=== PATIENT | female | born 1980 | race Caucasian/White ===

== ENCOUNTER 2017-05-06 10:09 | Inpatient (IN) | payer BC ==
[2017-05-06] MEDS ORDERED: Sodium Chloride 0.9% 1,000 ML IV ONE (10:16)
[2017-05-06 10:40] LABS: CHLORIDE,CL 105 mmol/L (98-107); SODIUM,NA 140 mmol/L (136-145)
--- NOTE | 2017-05-06 11:15 | EDM.PDOC ---
ED HPI GENERAL MEDICAL PROBLEM - General Chief Complaint: General Stated Complaint: Fever, Muscle Aches, Weakness Time Seen by Provider: 05/06/17 10:15 Source of Information: Reports: Patient History Limitations: Reports: No Limitations - History of Present Illness INITIAL COMMENTS - FREE TEXT/NARRATIVE: Patient comes to ER complaining of feeling extreme fatigue/hot&cold spells and generalized aches for the last 5 days. Not improving. Poor appetite. No bowel changes. No nausea/emesis. Has headache. Mild runny nose and mild cough just starting. No rashes. No changes. No neuro complaints. Overall denies significant past medical history. Has had hysterectomy and gastric bypass surgery. History of kidney stone. Also PCO, depression, arthritis. B12 and iron deficiency. - Related Data Allergies Allergy/AdvReac Type Severity Reaction Status Date / Time cefdinir [From Omnicef] Allergy Hypotension, Verified 05/24/16 21:17 rash metronidazole Allergy Swelling Verified 05/24/16 21:17 Home Meds: Home Meds Cyanocobalamin (Vitamin B-12) [Cyanocobalamin Injection] 1,000 mcg IJ Q30D 10/04 [History] Cyclobenzaprine [Flexeril] 10 mg PO BEDTIME 10/04/14 [History] FLUoxetine [PROzac] 40 mg PO QAM 10/04/14 [History] Zolpidem [Ambien] 10 mg PO BEDTIME 10/04/14 [History] Diazepam [Valium] 10 mg PO BID 06/03/15 [History] Folic Acid 1 mg PO QAM 06/03/15 [History] Omeprazole Magnesium [Prilosec Otc] 20 mg PO DAILY 05/24/16 [History] Acetaminophen [Acetaminophen Extra Strength] 2 tab PO TID PRN 05/06/17 [History] Ibuprofen [Ibuprofen Ib] 400 mg PO QID 05/06/17 [History] Past Medical History HEENT History: Reports: Allergic Rhinitis, Impaired Vision BRANCH COORDINATOR History: Reports: Polycystic Ovaries Musculoskeletal History: Reports: Arthritis Other Musculoskeletal History: Arthritis in back Psychiatric History: Reports: Depression Hematologic History: Reports: Anemia, B12 Deficiency, Iron Deficiency - Past Surgical History HEENT Surgical History: Reports: Oral Surgery, Tonsillectomy GI Surgical History: Reports: Bariatric Procedure Social & Family History - Family History Family Medical History: Noncontributory - Tobacco Use Smoking Status *Q: Never Smoker Second Hand Smoke Exposure: No - Recreational Drug Use Recreational Drug Use: No ED ROS GENERAL - Review of Systems Review Of Systems: See Below Constitutional: Reports: Fever, Chills, Malaise, Weakness, Fatigue, Night Sweats , Decreased Appetite HEENT: Reports: Glasses, Rhinitis. Denies: Dental Pain, Ear Discharge, Ear Pain , Eye Discharge, Eye Pain, Sinus Problem, Throat Pain, Throat Swelling, Vertigo , Vision Change Respiratory: Reports: Cough (mild). Denies: Shortness of Breath, Wheezing, Pleuritic Chest Pain, Sputum, Hemoptysis Cardiovascular: Reports: Lightheadedness. Denies: Chest Pain, Dyspnea on Exertion, Palpitations, Syncope GI/Abdominal: Reports: No Symptoms : Reports: No Symptoms Musculoskeletal: Reports: Other (generalized aches) Skin: Reports: No Symptoms Neurological: Reports: Dizziness, Headache, Weakness. Denies: Confusion, Numbness, Paresthesia, Seizure, Syncope, Change in Speech, Gait Disturbance Psychiatric: Reports: No Symptoms Hematologic/Lymphatic: Reports: No Symptoms Immunologic: Reports: No Symptoms ED EXAM, GENERAL - Physical Exam Exam: See Below Exam Limited By: No Limitations General Appearance: Alert, WD/WN, Other (appears fatigued and pale) Eye Exam: Bilateral Eye: EOMI, PERRL Ears: Normal External Exam, Normal Canal, Hearing Grossly Normal, Normal TMs Nose: Normal Inspection Throat/Mouth: Normal Inspection, Normal Lips, Normal Teeth, Normal Gums, Normal Oropharynx, Normal Voice, No Airway Compromise Head: Atraumatic, Normocephalic Neck: Normal Inspection, Supple, Non-Tender, Full Range of Motion. No: Lymphadenopathy (L), Lymphadenopathy (R) Respiratory/Chest: No Respiratory Distress, Lungs Clear, Normal Breath Sounds, No Accessory Muscle Use, Chest Non-Tender Cardiovascular: No Edema, No Murmur, Tachycardia Peripheral Pulses: 2+: Radial (L), Radial (R) GI/Abdominal: Normal Bowel Sounds, Non-Tender, No Organomegaly, No Distention, No Abnormal Bruit, No Mass, Pelvis Stable (Female) Exam: Deferred Rectal (Female) Exam: Normal Exam, Normal Rectal Tone, Heme - Stool Back Exam: Normal Inspection, Full Range of Motion. No: CVA Tenderness (L), CVA Tenderness (R), Muscle Spasm, Paraspinal Tenderness, Vertebral Tenderness Extremities: Normal Range of Motion, No Pedal Edema, Slow Capillary Refill, Other (diffuse tenderness with palpation soft tissue of arms/legs.) Neurological: Alert, Oriented, CN II-XII Intact, Normal Cognition, Normal Gait, Normal Reflexes, No Motor/Sensory Deficits Psychiatric: Tearful Skin Exam: Warm, Dry, Intact, Pallor Lymphatic: No Adenopathy Course - Vital Signs Last Recorded V/S: Last Vital Signs Temp 38.7 C H 05/06/17 10:11 Pulse 110 H 05/06/17 10:11 Resp 16 05/06/17 10:11 BP 105/62 05/06/17 10:11 Pulse Ox 98 05/06/17 10:11 - Orders/Labs/Meds Orders: Active Orders 24 hr Category Date Time Status CULTURE BLOOD [BC] Stat Lab 05/06/17 11:05 Ordered CULTURE BLOOD [BC] Stat Lab 05/06/17 11:05 Ordered FERRITIN [CHEM] Stat Lab 05/06/17 11:05 Ordered IRON/TIBC [CHEM] Stat Lab 05/06/17 11:06 Ordered PACKED CELLS [RED BLOOD CELLS LP] [BBK] Stat Lab 05/06/17 11:07 Ordered TYPE AND SCREEN [BBK] Stat Lab 05/06/17 11:07 Ordered UA W/MICROSCOPIC [URIN] Stat Lab 05/06/17 10:15 Uncollected VITAMIN B12 [CHEM] Stat Lab 05/06/17 11:05 Ordered Sodium Chloride 0.9% [Normal Saline] 1,000 ml Med 05/06/17 10:16 Ordered IV .BOLUS Sodium Chloride 0.9% [Saline Flush] Med 05/06/17 10:16 Ordered 10 ml FLUSH ASDIRECTED PRN Blood Culture x2 Reflex Set [OM.PC] Stat Oth 05/06/17 11:05 Ordered Saline Lock Insert [OM.PC] Routine Oth 05/06/17 10:16 Ordered Medication Orders Sodium Chloride (Normal Saline) 1,000 mls @ 999 mls/hr IV .BOLUS ONE Stop: 05/06/17 11:16 Last Admin: 05/06/17 10:34 Dose: 999 mls/hr Sodium Chloride (Saline Flush) 10 ml FLUSH ASDIRECTED PRN PRN Reason: Keep Vein Open Labs: Laboratory Tests 05/06/17 05/06/17 Range/Units 10:20 10:20 WBC 5.9 (4.0-10.2) K/uL RBC 2.07 L (3.77-5.09) M/uL Hgb 7.5 L D (11.7-15.5) g/dL Hct 24.3 L* (34.0-46.0) % MCV 117.4 H D (84.0-98.0) fL MCH 36.2 H (28.2-33.3) pg MCHC 30.9 L (31.7-36.0) g/dL RDW 12.2 (11.2-14.1) % Plt Count 168 D (150-350) K/uL Neut % (Auto) 81.0 H (45.0-80.0) % Lymph % (Auto) 13.6 (10.0-50.0) % [place] % (Auto) 4.9 (2.0-14.0) % Eos % (Auto) 0.5 (0.0-5.0) % Baso % (Auto) 0.0 (0.0-2.0) % Neut # (Auto) 4.75 (1.40-7.00) K/uL Lymph # (Auto) 0.80 (0.50-3.50) K/uL [place] # (Auto) 0.29 (0.00-1.00) K/uL Eos # (Auto) 0.03 (0.00-0.50) K/uL Baso # (Auto) 0.00 (0.00-0.20) K/uL Sodium 140 D (136-145) mmol/L Potassium 3.7 (3.5-5.1) mmol/L Chloride 105 (98-107) mmol/L Carbon Dioxide 28.2 (21.0-32.0) mmol/L BUN 18 (7-18) mg/dL Creatinine 0.93 (0.51-1.17) mg/dL Est Cr Clr Drug Dosing TNP Estimated GFR (MDRD) > 60 mL/min Glucose 111 H (74-106) mg/dL Calcium 8.3 L (8.5-10.1) mg/dL Total Bilirubin 0.9 (0.2-1.0) mg/dL AST 17 (15-37) U/L ALT 22 (12-78) U/L Alkaline Phosphatase 79 (46-116) IU/L Total Protein 6.4 (6.4-8.2) g/dL Albumin 3.2 L (3.4-5.0) g/dL Meds: Medications Generic Name Dose Route Start Last Admin Trade Name Brettq PRN Reason Stop Dose Admin Sodium Chloride 1,000 mls @ 999 mls/hr 05/06/17 10:16 05/06/17 10:34 Normal Saline IV 05/06/17 11:16 999 mls/hr .BOLUS ONE Administration Sodium Chloride 10 ml 05/06/17 10:16 Saline Flush FLUSH ASDIRECTED PRN Keep Vein Open - Re-Assessments/Exams Free Text/Narrative Re-Assessment/Exam: 05/06/17 11:18 Patient noted to have Hgb of 7.5 Tachycardic, dehydrated in addition to noted anemia. Influenza negative. Blood cultures ordered. Chemistry overall unremarkable. Iron studies ordered in addition to other labs. Plan at this time is to admit to inpatient and treat dehydration as well as give PRBCs to treat anemia. Suspect that anemia is more likely chronic given patient's history of gastric bypass as well as previous B12/Fe deficiency. She denies black/bloody bowel movements. Departure - Departure Time of Disposition: 11:21 Disposition: Admitted As Inpatient 64 Condition: Good Clinical Impression: Dehydration, Weakness Fever Qualifiers: Fever type: unspecified Qualified Code(s): R50.9 - Fever, unspecified Anemia Qualifiers: Anemia type: unspecified type Qualified Code(s): D64.9 - Anemia, unspecified - Discharge Information Referrals: Bernice Bianchi, [employer] [Primary Care Provider] - - Problem List & Annotations (1) Anemia SNOMED Code(s): 648680534 Code(s): D64.9 - ANEMIA, UNSPECIFIED Status: Acute Priority: High Annotation/Comment:: Iron and B12 studies ordered. Suspect this is most likely chronic anemia. No evidence of acute blood loss/GI bleed at this time. Qualifiers: Anemia type: unspecified type (2) Fever SNOMED Code(s): 773011533 Code(s): R50.9 - FEVER, UNSPECIFIED Status: Acute Priority: High Qualifiers: Fever type: unspecified Qualified Code(s): R50.9 - Fever, unspecified (3) Dehydration SNOMED Code(s): 11802449 Code(s): E86.0 - DEHYDRATION Status: Acute Priority: High (4) Weakness SNOMED Code(s): 79843011 Code(s): R53.1 - WEAKNESS Status: Acute Priority: High (5) Hx of bariatric surgery SNOMED Code(s): 495237408 Code(s): Z98.84 - BARIATRIC SURGERY STATUS Status: Chronic Priority: Low (6) History of depression SNOMED Code(s): 130207953 Code(s): Z86.59 - PERSONAL HISTORY OF OTHER MENTAL AND BEHAVIORAL DISORDERS Status: Chronic Priority: Low Annotation/Comment:: stable by history (7) Polyarthritis rheumatica SNOMED Code(s): 39786159 Code(s): M06.9 - RHEUMATOID ARTHRITIS, UNSPECIFIED Status: Chronic Priority: Low Annotation/Comment:: stable - Problem List Review Problem List Initiated/Reviewed/Updated: Yes - My Orders Last 24 Hours: My Active Orders 05/06/17 10:15 UA W/MICROSCOPIC [URIN] Stat 05/06/17 10:16 Sodium Chloride 0.9% [Normal Saline] 1,000 ml IV .BOLUS Sodium Chloride 0.9% [Saline Flush] 10 ml FLUSH ASDIRECTED PRN Saline Lock Insert [OM.PC] Routine 05/06/17 11:05 CULTURE BLOOD [BC] Stat CULTURE BLOOD [BC] Stat FERRITIN [CHEM] Stat VITAMIN B12 [CHEM] Stat Blood Culture x2 Reflex Set [OM.PC] Stat 05/06/17 11:06 IRON/TIBC [CHEM] Stat 05/06/17 11:07 PACKED CELLS [RED BLOOD CELLS LP] [BBK] Stat TYPE AND SCREEN [BBK] Stat - Assessment/Plan Admission H&P: Please use this note as an admission H&P Last 24 Hours: My Active Orders 05/06/17 10:15 UA W/MICROSCOPIC [URIN] Stat 05/06/17 10:16 Sodium Chloride 0.9% [Normal Saline] 1,000 ml IV .BOLUS Sodium Chloride 0.9% [Saline Flush] 10 ml FLUSH ASDIRECTED PRN Saline Lock Insert [OM.PC] Routine 05/06/17 11:05 CULTURE BLOOD [BC] Stat CULTURE BLOOD [BC] Stat FERRITIN [CHEM] Stat VITAMIN B12 [CHEM] Stat Blood Culture x2 Reflex Set [OM.PC] Stat 05/06/17 11:06 IRON/TIBC [CHEM] Stat 05/06/17 11:07 PACKED CELLS [RED BLOOD CELLS LP] [BBK] Stat TYPE AND SCREEN [BBK] Stat Assessment:: Acute weakness, fevers/chills and dehydration in patient also found to be severely anemic. Influenza negative. Blood cultures pending. Suspect viral illness as several members of family have had viral type infections within the last week. Plan: IV fluids/PRBCs planned. Continued observation for changes. Iron studies and B12 level ordered. Blood cultures pending. Anticipate 2-3 day stay given patient 's current level of weakness and symptoms.
[2017-05-06] MEDS ORDERED: Ketorolac 30 MG/ML SDV IVPUSH ONE (11:30)
[2017-05-06] MEDS ORDERED: Bisacodyl 10 MG Supp RECTAL PRN (11:55)
[2017-05-06] MEDS ORDERED: Magnesium Hydroxide 400 MG/5 ML Susp 30 ML Cup PO PRN (11:55)
[2017-05-06] MEDS ORDERED: Ketorolac 30 MG/ML SDV IVPUSH PRN (12:12)
[2017-05-06] MEDS: Sodium Chloride 0.9% 1,000 ML IV SCH ×2 (12:13→23:56)
[2017-05-06] MEDS: Acetaminophen 325 MG Tab PO PRN ×2 (12:58→19:46)
[2017-05-06] MEDS: traMADol 50 MG Tab PO PRN (16:17)
[2017-05-06] MEDS ORDERED: Diazepam 5 MG Tab PO SCH (18:00)
[2017-05-06] MEDS: Cyclobenzaprine 10 MG Tab PO SCH (19:47)
[2017-05-06] MEDS: Zolpidem 5 MG Tab PO SCH (21:49)
[2017-05-06] MEDS: Diazepam 5 MG Tab PO SCH (21:49)
[2017-05-06] MEDS: Nitrofurantoin Monohydrate/Macrocrystalline 100 MG Cap PO SCH (22:34)
[2017-05-07] MEDS: Acetaminophen 325 MG Tab PO PRN ×3 (03:04→17:50)
[2017-05-07] MEDS: traMADol 50 MG Tab PO PRN ×3 (03:05→17:49)
[2017-05-07] MEDS: FLUoxetine 20 MG Cap PO SCH (07:20)
[2017-05-07] MEDS: Pantoprazole 40 MG Vial IVPUSH SCH (07:20)
[2017-05-07] MEDS: Diazepam 5 MG Tab PO SCH ×2 (07:21→21:19)
[2017-05-07] MEDS: Nitrofurantoin Monohydrate/Macrocrystalline 100 MG Cap PO SCH ×2 (07:21→17:51)
[2017-05-07] MEDS: Folic Acid 1 MG Tab PO SCH (07:21)
[2017-05-07 07:49] LABS: CHLORIDE,CL 107 mmol/L (98-107); SODIUM,NA 140 mmol/L (136-145)
[2017-05-07] MEDS: Sodium Chloride 0.9% 1,000 ML IV SCH (08:06)
--- NOTE | 2017-05-07 09:27 | PCM.PN ---
- General Info Date of Service: 05/07/17 Admission Dx/Problem (Free Text): Anemia, weakness, dehydration, suspected viral syndrome Subjective Update: Patient overall feels improved. Continues to have headache Functional Status: Reports: Ambulating, Other (Starting to recover appetite. Headache improved but still /10) - Review of Systems General: Reports: Weakness, Fatigue, Malaise. Denies: Fever, Chills, Night Sweats HEENT: Reports: Rhinitis. Denies: Sore Throat Pulmonary: Reports: Cough (mild). Denies: Shortness of Breath, Pleuritic Chest Pain, Sputum, Hemoptysis, Wheezing Cardiovascular: Reports: No Symptoms Gastrointestinal: Reports: Decreased Appetite. Denies: Abdominal Pain, Constipation, Diarrhea, Difficulty Swallowing, Nausea, Vomiting Genitourinary: Reports: No Symptoms Musculoskeletal: Reports: Other (generalized achiness) Skin: Reports: No Symptoms Neurological: Reports: Headache. Denies: Confusion, Dizziness, Numbness, Paresthesia, Change in Speech Psychiatric: Reports: No Symptoms - Patient Data Vitals - Most Recent: Last Vital Signs Temp 36.9 C 05/07/17 08:00 Pulse 82 05/07/17 08:00 Resp 16 05/07/17 08:00 BP 114/69 05/07/17 08:00 Pulse Ox 99 05/07/17 08:00 Weight - Most Recent: 67.132 kg I&O - Last 24 Hours: Intake & Output 05/06/17 05/07/17 05/07/17 22:59 06:59 14:59 Intake Total 3560 1900 Output Total 550 550 400 Balance 3010 1350 -400 Lab Results Last 24 Hours: Laboratory Results - last 24 hr 05/06/17 05/06/17 05/07/17 Range/Units 17:30 18:45 07:10 WBC (4.0-10.2) K/uL RBC (3.77-5.09) M/uL Hgb 8.8 L (11.7-15.5) g/dL Hct 27.4 L (34.0-46.0) % MCV (84.0-98.0) fL MCH (28.2-33.3) pg MCHC (31.7-36.0) g/dL RDW (11.2-14.1) % Plt Count (150-350) K/uL Neut % (Auto) (45.0-80.0) % Lymph % (Auto) (10.0-50.0) % Luna % (Auto) (2.0-14.0) % Eos % (Auto) (0.0-5.0) % Baso % (Auto) (0.0-2.0) % Neut # (Auto) (1.40-7.00) K/uL Lymph # (Auto) (0.50-3.50) K/uL Luna # (Auto) (0.00-1.00) K/uL Eos # (Auto) (0.00-0.50) K/uL Baso # (Auto) (0.00-0.20) K/uL Sodium 140 (136-145) mmol/L Potassium 3.4 L (3.5-5.1) mmol/L Chloride 107 (98-107) mmol/L Carbon Dioxide 27.0 (21.0-32.0) mmol/L BUN 15 (7-18) mg/dL Creatinine 0.68 (0.51-1.17) mg/dL Est Cr Clr Drug Dosing 103.98 mL/min Estimated GFR (MDRD) > 60 mL/min Glucose 88 (74-106) mg/dL Calcium 7.6 L (8.5-10.1) mg/dL Total Bilirubin 1.0 (0.2-1.0) mg/dL AST 27 (15-37) U/L ALT 27 (12-78) U/L Alkaline Phosphatase 69 (46-116) IU/L Total Protein 5.4 L (6.4-8.2) g/dL Albumin 2.6 L (3.4-5.0) g/dL Specimen Type Urinblad Urine Color Dark yellow Urine Appearance Slightly cloudy Urine pH 5.5 (5.0-9.0) Ur Specific Fowler 1.025 (1.005-1.030) Urine Protein 100 H (NEGATIVE) mg/dL Urine Glucose (UA) Negative (NEGATIVE) mg/dL Urine Ketones Negative (NEGATIVE) mg/dL Urine Occult Blood Trace-lysed H (NEGATIVE) Urine Nitrite Negative (NEGATIVE) Urine Bilirubin Negative (NEGATIVE) Urine Urobilinogen 1.0 (0.2-1.0) E.U./dL Ur Leukocyte Esterase Trace H (NEGATIVE) Urine RBC 5-10 H /HPF Urine WBC 30-40 H /HPF Ur Epithelial Cells Few /LPF Urine Bacteria Many H (NONE TO FEW) /HPF 05/07/17 Range/Units 07:10 WBC 5.9 (4.0-10.2) K/uL RBC 2.59 L (3.77-5.09) M/uL Hgb 8.8 L (11.7-15.5) g/dL Hct 27.2 L (34.0-46.0) % MCV 105.0 H D (84.0-98.0) fL MCH 34.0 H (28.2-33.3) pg MCHC 32.4 (31.7-36.0) g/dL RDW 20.1 H (11.2-14.1) % Plt Count 136 L (150-350) K/uL Neut % (Auto) 74.9 (45.0-80.0) % Lymph % (Auto) 16.4 (10.0-50.0) % Luna % (Auto) 7.3 (2.0-14.0) % Eos % (Auto) 1.2 (0.0-5.0) % Baso % (Auto) 0.2 (0.0-2.0) % Neut # (Auto) 4.44 (1.40-7.00) K/uL Lymph # (Auto) 0.97 (0.50-3.50) K/uL Luna # (Auto) 0.43 (0.00-1.00) K/uL Eos # (Auto) 0.07 (0.00-0.50) K/uL Baso # (Auto) 0.01 (0.00-0.20) K/uL Sodium (136-145) mmol/L Potassium (3.5-5.1) mmol/L Chloride (98-107) mmol/L Carbon Dioxide (21.0-32.0) mmol/L BUN (7-18) mg/dL Creatinine (0.51-1.17) mg/dL Est Cr Clr Drug Dosing mL/min Estimated GFR (MDRD) mL/min Glucose (74-106) mg/dL Calcium (8.5-10.1) mg/dL Total Bilirubin (0.2-1.0) mg/dL AST (15-37) U/L ALT (12-78) U/L Alkaline Phosphatase (46-116) IU/L Total Protein (6.4-8.2) g/dL Albumin (3.4-5.0) g/dL Specimen Type Urine Color Urine Appearance Urine pH (5.0-9.0) Ur Specific Fowler (1.005-1.030) Urine Protein (NEGATIVE) mg/dL Urine Glucose (UA) (NEGATIVE) mg/dL Urine Ketones (NEGATIVE) mg/dL Urine Occult Blood (NEGATIVE) Urine Nitrite (NEGATIVE) Urine Bilirubin (NEGATIVE) Urine Urobilinogen (0.2-1.0) E.U./dL Ur Leukocyte Esterase (NEGATIVE) Urine RBC /HPF Urine WBC /HPF Ur Epithelial Cells /LPF Urine Bacteria (NONE TO FEW) /HPF Med Orders - Current: Current Medications Acetaminophen (Tylenol) 650 mg PO Q4H PRN PRN Reason: analgesia/fever Last Admin: 05/07/17 03:04 Dose: 650 mg Bisacodyl (Dulcolax) 10 mg RECTAL DAILY PRN PRN Reason: Constipation Cyclobenzaprine HCl (Flexeril) 10 mg PO BEDTIME [facility] Last Admin: 05/06/17 19:47 Dose: 10 mg Diazepam (Valium.) 10 mg PO BID@0800,2000 [facility] Last Admin: 05/07/17 07:21 Dose: 10 mg Fluoxetine HCl (Prozac) 40 mg PO QAM [facility] Last Admin: 05/07/17 07:20 Dose: 40 mg Folic Acid (Folic Acid) 1 mg PO QAM [facility] Last Admin: 05/07/17 07:21 Dose: 1 mg Sodium Chloride (Normal Saline) 1,000 mls @ 75 mls/hr IV ASDIRECTED [facility] Last Admin: 05/07/17 08:06 Dose: 125 mls/hr Ceftriaxone Sodium 1 gm/ (Sodium Chloride) 100 mls @ 200 mls/hr IV Q24H [facility] Ketorolac Tromethamine (Toradol) 30 mg IVPUSH Q6H PRN PRN Reason: Pain Stop: 05/11/17 12:12 Last Admin: 05/06/17 19:47 Dose: 30 mg Magnesium Hydroxide (Milk Of Magnesia) 30 ml PO BID PRN PRN Reason: Constipation Nitrofurantoin Macrocrystals (Macrobid) 100 mg PO BID [facility] Last Admin: 05/07/17 07:21 Dose: 100 mg Pantoprazole Sodium (Protonix Iv) 40 mg IVPUSH DAILY [facility] Last Admin: 05/07/17 07:20 Dose: 40 mg Sodium Chloride (Saline Flush) 10 ml FLUSH ASDIRECTED PRN PRN Reason: Keep Vein Open Tramadol HCl (Ultram) 50 mg PO Q6H PRN PRN Reason: Pain Last Admin: 05/07/17 03:05 Dose: 50 mg Zolpidem Tartrate (Ambien) 10 mg PO BEDTIME [facility] Last Admin: 05/06/17 21:49 Dose: 10 mg Discontinued Medications Diazepam (Valium.) 10 mg PO BID [facility] Last Admin: 05/06/17 18:55 Dose: Not Given Sodium Chloride (Normal Saline) 1,000 mls @ 999 mls/hr IV .BOLUS ONE Stop: 05/06/17 11:16 Last Admin: 05/06/17 10:34 Dose: 999 mls/hr Ketorolac Tromethamine (Toradol) 30 mg IVPUSH ONETIME ONE Stop: 05/06/17 11:31 Last Admin: 05/06/17 12:11 Dose: 30 mg - Exam General: Alert, Oriented, Cooperative, No Acute Distress, Other (appears fatigued) HEENT: Pupils Equal, Pupils Reactive, EOMI, Mucous Membr. Moist/[place] Neck: Supple Lungs: Clear to Auscultation, Normal Respiratory Effort Cardiovascular: Regular Rate, Regular Rhythm GI/Abdominal Exam: Normal Bowel Sounds, Soft, Non-Tender, No Organomegaly, No Distention, No Abnormal Bruit, No Mass (Female) Exam: Deferred Back Exam: Normal Inspection Extremities: Normal Inspection, Normal Range of Motion, Non-Tender, No Pedal Edema, Normal Capillary Refill Peripheral Pulses: 2+: Radial (L), Radial (R) Skin: Warm, Dry, Intact Neurological: No New Focal Deficit Psy/Mental Status: Alert, Normal Affect, Normal Mood - Problem List & Annotations (1) Anemia SNOMED Code(s): 198154133 Code(s): D64.9 - ANEMIA, UNSPECIFIED Status: Acute Priority: High Current Visit: Yes Qualifiers: Anemia type: unspecified type Qualified Code(s): D64.9 - Anemia, unspecified Annotation/Comment:: Improved from 7.5 to 8.8 after two units of PRBC. Was at 11.6 and 12.2 when chart reviewed and HGB checked in 2016 and 2014. Blood given due to sharp drop in level and patient's extreme fatigue/pallor. Patient has since tried to review her chart online and said that she has been running lower this year and has been in the 7 range before this summer. No intervention at that time per patient. Suspect this is most likely chronic anemia, does have history of gastric bypass. On B12 shots and folic acid. No evidence of acute blood loss/GI bleed at this time. Elevated ferritin. Normal B12. Low TIBC and Fe noted. (2) Fever SNOMED Code(s): 117879421 Code(s): R50.9 - FEVER, UNSPECIFIED Status: Acute Priority: High Current Visit: Yes Onset Date: ~04/25/17 Qualifiers: Fever type: unspecified Qualified Code(s): R50.9 - Fever, unspecified Annotation/Comment:: Improved today. Supected to be secondary to viral syndrome given patient history. Found to have UTI during workup. (3) Dehydration SNOMED Code(s): 68138402 Code(s): E86.0 - DEHYDRATION Status: Acute Priority: High Current Visit : Yes Onset Date: ~05/06/17 (4) UTI (urinary tract infection) SNOMED Code(s): 46931413 Code(s): N39.0 - URINARY TRACT INFECTION, SITE NOT SPECIFIED Status: Acute Priority: High Current Visit: Yes Onset Date: ~04/29/17 Qualifiers: Urinary tract infection type: acute cystitis Annotation/Comment:: UA positive for UTI. Rocephin given. Patient says that she has tolerated this well in the past, despite being possibly allergic to a cephalosporin. She says that it was not Cefdinir, which is listed officially on her chart. Macrobid also started. Culture and sensitivity ordered. (5) Weakness SNOMED Code(s): 58766359 Code(s): R53.1 - WEAKNESS Status: Acute Priority: High Current Visit: Yes Onset Date: ~04/25/17 (6) Hx of bariatric surgery SNOMED Code(s): 678682583 Code(s): Z98.84 - BARIATRIC SURGERY STATUS Status: Chronic Priority: Low Current Visit: Yes (7) History of depression SNOMED Code(s): 311567072 Code(s): Z86.59 - PERSONAL HISTORY OF OTHER MENTAL AND BEHAVIORAL DISORDERS Status: Chronic Priority: Low Current Visit: Yes Annotation/Comment:: stable by history (8) Polyarthritis rheumatica SNOMED Code(s): 60155012 Code(s): M06.9 - RHEUMATOID ARTHRITIS, UNSPECIFIED Status: Chronic Priority: Low Current Visit: No Annotation/Comment:: stable - Problem List Review Problem List Initiated/Reviewed/Updated: Yes - My Orders Last 24 Hours: My Active Orders 05/06/17 11:55 Patient Status [ADT] Routine Vital Signs [RC] Q4HWA Acetaminophen [Tylenol] 650 mg PO Q4H PRN Bisacodyl [Dulcolax] 10 mg RECTAL DAILY PRN Magnesium Hydroxide [Milk of Magnesia] 30 ml PO BID PRN DVT/VTE Prophylaxis Reflex [OM.PC] Routine 05/06/17 11:56 Intake and Output [RC] QSHIFT Pulse Oximetry [RC] PRN 05/06/17 11:57 Antiembolic Devices [RC] 08,20 VTE/DVT Education [RC] PER UNIT ROUTINE Antiembolic Hose [OM.PC] Per Unit Routine 05/06/17 11:58 Telemetry Monitoring [Cardiac Monitoring] [RC] Q2HR 05/06/17 12:01 RETICULOCYTE COUNT [REF] Routine 05/06/17 12:03 Code Status [Resuscitation Status] Routine 05/06/17 12:12 Ketorolac [Toradol] 30 mg IVPUSH Q6H PRN 05/06/17 12:13 traMADol [Ultram] 50 mg PO Q6H PRN 05/06/17 12:15 Sodium Chloride 0.9% [Normal Saline] 1,000 ml IV ASDIRECTED 05/06/17 20:00 Cyclobenzaprine [Flexeril] 10 mg PO BEDTIME Diazepam [Valium] 10 mg PO BID@0800,2000 Zolpidem [Ambien] 10 mg PO BEDTIME 05/06/17 22:15 Nitrofurantoin Luna/Macrocryst [Macrobid] 100 mg PO BID 05/06/17 Lunch Regular Diet [DIET] 05/07/17 08:00 FLUoxetine [PROzac] 40 mg PO QAM Folic Acid 1 mg PO QAM Pantoprazole [ProTONIX IV] 40 mg IVPUSH DAILY 05/07/17 08:41 CULTURE URINE [RM] Routine 05/07/17 09:23 Ambulate [RC] PER UNIT ROUTINE 05/07/17 09:30 cefTRIAXone [Rocephin] 1 gm Sodium Chloride 0.9% [Normal Saline] 100 ml IV Q24H - Assessment Assessment:: Suspected viral syndrome, UTI, anemia, weakness and dehydration in patient with negative influenza tests. Continues to have headache and poor appetite. Improved HGB/HCT s/p blood transfusion. - Plan Plan:: Continue IV fluids. Rocephin and Macrobid for UTI. Pain management for headache. Anticipate likely discharge home tomorrow on oral antibiotics with close follow up with primary provider.
[2017-05-07] MEDS: cefTRIAXone 1 GM in Sodium Chloride 0.9% 100 ML IV SCH (09:38)
[2017-05-07] MEDS ORDERED: Zolpidem 5 MG Tab PO PRN (17:15)
[2017-05-07] MEDS: Cyclobenzaprine 10 MG Tab PO SCH (21:19)
[2017-05-07] MEDS: Zolpidem 5 MG Tab PO SCH (21:19)
[2017-05-08] MEDS: Diazepam 5 MG Tab PO SCH (07:50)
[2017-05-08] MEDS: Nitrofurantoin Monohydrate/Macrocrystalline 100 MG Cap PO SCH (07:50)
[2017-05-08] MEDS: FLUoxetine 20 MG Cap PO SCH (07:50)
[2017-05-08] MEDS: Folic Acid 1 MG Tab PO SCH (07:50)
[2017-05-08] MEDS: Sodium Chloride 0.9% 10 ML Syringe FLUSH PRN ×2 (07:50→08:34)
[2017-05-08] MEDS: Pantoprazole 40 MG Vial IVPUSH SCH (07:51)
[2017-05-08] MEDS: cefTRIAXone 1 GM in Sodium Chloride 0.9% 100 ML IV SCH (08:33)
[2017-05-08 08:39] VITALS: BP 106/67
[2017-05-08 09:57] LABS: CHLORIDE,CL 107 mmol/L (98-107); SODIUM,NA 141 mmol/L (136-145)
--- NOTE | 2017-05-08 11:58 | PCM.DCSUM1 ---
Discharge Summary - Hospital Course HPI Initial Comments: See emergency room note/admission H&P Brief History: See emergency room note/admission H&P - Discharge Data Discharge Date: 05/08/17 Discharge Disposition: Home, Self-Care 01 Condition: Good - Discharge Diagnosis/Problem(s) (1) UTI (urinary tract infection) SNOMED Code(s): 50376754 ICD Code: N39.0 - URINARY TRACT INFECTION, SITE NOT SPECIFIED Status: Acute Priority: High Current Visit: Yes Onset Date: ~04/29/17 Problem Details: UA positive for UTI with urine culture showing Escherichia coli sensitive to both Macrobid and Bactrim DS. Bactrim DS will be initiated today with three-day supply of emergency room prescription and an additional seven- day course prescription prescribed. Macrobid is not currently available in our emergency room cabinet. Close follow-up by regular provider. Rocephin given yesterday, which she has tolerated this well in the past, despite being possibly allergic to a cephalosporin. She says that it was not Cefdinir, which is listed officially on her chart. Macrobid also started yesterday. Patient given 3 day supply of Macrobid from the emergency room cabinet with additional seven-day prescription provided Qualifiers: Urinary tract infection type: acute cystitis (2) Anemia SNOMED Code(s): 838793143 ICD Code: D64.9 - ANEMIA, UNSPECIFIED Status: Chronic Priority: High Current Visit: Yes Problem Details: Patient's hemoglobin improved to 9.2 at discharge with previous improvement from 7.5 to 8.8 after two units of PRBC. Patient has been noncompliant with her supplements, including no iron supplements for about one week secondary to recent illness. Compliance with all supplements strongly encouraged. Note iron deficiency was confirmed during this hospitalization. No abdominal pain or direct evidence of acute GI bleed with transfusions performed without complications. Close follow-up by her regular provider as per discharge instructions and further GI workup, etc. depending on her clinical course. Note status post previous gastric bypass. Note that the patient has also not received her vitamin B 12 injection within the last 30 days with injection given prior to discharge Qualifiers: Anemia type: unspecified type Qualified Code(s): D64.9 - Anemia, unspecified (3) Dehydration SNOMED Code(s): 97865528 ICD Code: E86.0 - DEHYDRATION Status: Chronic Priority: Medium Current Visit: Yes Onset Date: ~05/06/17 Problem Details: Resolved at time of discharge with IV fluids given during this hospitalization (4) URI (upper respiratory infection) SNOMED Code(s): 59898740 ICD Code: J06.9 - ACUTE UPPER RESPIRATORY INFECTION, UNSPECIFIED Status: Acute Priority: Medium Current Visit: Yes Onset Date: ~05/07/17 Problem Details: Symptomatic treatment for now. Her general fatigue, etc. improved/ resolved at time of discharge. [employer] work excuse provided. Qualifiers: URI type: unspecified viral URI Qualified Code(s): J06.9 - Acute upper respiratory infection, unspecified; B97.89 - Other viral agents as the cause of diseases classified elsewhere; B97.89 - Other viral agents as the cause of diseases classified elsewhere (5) Mixed anxiety depressive disorder SNOMED Code(s): 815111208 ICD Code: F41.8 - OTHER SPECIFIED ANXIETY DISORDERS Status: Chronic Priority: Medium Current Visit: Yes Problem Details: Note multiple current medications. Stable by history. Continue to observe closely by regular providers (6) Hypokalemia SNOMED Code(s): 21305497 ICD Code: E87.6 - HYPOKALEMIA Status: Acute Priority: Medium Current Visit: Yes Onset Date: ~05/07/17 Problem Details: Moderate hypokalemia today with 40 mEq of potassium chloride given prior to discharge. Close follow- up by regular provider. Continue low-dose potassium supplement starting tomorrow secondary to holiday season (7) Hypoalbuminemia SNOMED Code(s): 159130434 ICD Code: E88.09 - [facility] DISORDERS OF PLASMA-PROTEIN METABOLISM, NEC Status: Chronic Priority: Medium Current Visit: Yes Onset Date: ~05/08/17 Problem Details: High protein Glucerna supplements twice a day as snacks with repeat blood work in about one month as per discharge instructions. Note status post gastric bypass - Patient Summary/Data Operative Procedure(s) Performed: None Complications: None Consults: None Labs Pending at D/C: Final blood culture results Recommended Follow-up Testing/Procedures: As per discharge instructions Planned Operative Procedure(s) after DC: None Hospital Course: Patient was admitted to inpatient/acute care for evaluation of nonspecific fatigue with significant anemia on admission. She did require 2 units of packed red blood cells as above with no complications with transfusion. Note likely chronic iron deficiency, vitamin D 12 deficiency, folic acid deficiency, etc. secondary to her previous gastric bypass and supplemented noncompliance with close follow-up by her regular provider as per discharge instructions. No evidence of significant abdominal pain, GI bleed, etc. during this hospitalization. Newly diagnosed UTI during this hospitalization with treatment as above. - Patient Instructions Diet: Regular Diet as Tolerated Diet, Other: High-protein Glucerna supplements 2 times a day as snacks Activity: As Tolerated (Fall and injury precautions secondary to anemia) Driving: May Drive Today Showering/Bathing: May Shower Notify Provider of: Fever, Increased Pain, Nausea and/or Vomiting Other/Special Instructions: 1. Followup with your regular provider in 10-14 days as directed for reevaluation and recommended repeat CBC, basic metabolic panel, urine test, and urine for culture and sensitivity. 2. Consider further GI workup and evaluation, if no improvement in anemia, reoccurs, etc. depending on your clinical course. 3. Compliance with all supplements as directed strict. 4. Work excuse- See Form. 5. Recommend repeating CBC, comprehensive metabolic panel, TIBC panel, Transferin, ferritin, vitamin B-12, and folic acid levels in one month. 6. Complete a full 10 day course of your Bactrim DS with 3 days of medications given from our emergency room cabinet with an additional 7 day prescription called to your pharmacy - Discharge Plan Prescriptions/Med Rec: Ferrous Sulfate 325 mg PO BID #100 tablet Folic Acid/Multivit-Min/Lutein [Adult Multivitamin Gummies] 2 each PO DAILY # 100 tab.chew Potassium Chloride 10 meq PO DAILY #14 capsule.er Sulfamethoxazole/Trimethoprim [Bactrim Ds Tablet] 1 each PO BID #14 tablet Home Medications: Home Meds Cyanocobalamin (Vitamin B-12) [Cyanocobalamin Injection] 1,000 mcg IJ Q30D 10/04 [History] Cyclobenzaprine [Flexeril] 10 mg PO BEDTIME 10/04/14 [History] FLUoxetine [PROzac] 40 mg PO QAM 10/04/14 [History] Zolpidem [Ambien] 10 mg PO BEDTIME 10/04/14 [History] Diazepam [Valium] 10 mg PO BID 06/03/15 [History] Folic Acid 1 mg PO QAM 06/03/15 [History] Omeprazole Magnesium [Prilosec Otc] 20 mg PO DAILY 05/24/16 [History] Acetaminophen [Tylenol] 650 mg PO Q4H PRN tablet 05/08/17 [Rx] Bisacodyl [Dulcolax] 10 mg RECTAL DAILY PRN supp 05/08/17 [Rx] Ferrous Sulfate 325 mg PO BID #100 tablet 05/08/17 [Rx] Folic Acid/Multivit-Min/Lutein [Adult Multivitamin Gummies] 2 each PO DAILY # 100 tab.chew 05/08/17 [Rx] Potassium Chloride 10 meq PO DAILY #14 capsule.er 05/08/17 [Rx] Sulfamethoxazole/Trimethoprim [Bactrim Ds Tablet] 1 each PO BID #14 tablet 05/08 [Rx] Patient Handouts: Urinary Tract Infection, Adult, [id number] Forms: ED Department Discharge Referrals: Bernice Bianchi, [employer] [Primary Care Provider] - - Discharge Summary/Plan Comment DC Time >30 min.: Yes (Coordination of care) Discharge Summary/Plan Comment: As above. Extensive precautions were given to the patient and her , who are in agreement with the treatment plan. See Patient Instructions for further treatment and plan. - General Info Date of Service: 05/08/17 Admission Dx/Problem (Free Text: Anemia, weakness, dehydration, suspected viral syndrome Functional Status: Reports: Pain Controlled, Tolerating Diet, Ambulating, Urinating, New Symptoms. Denies: Incentive Spirometry Numeric/FACES Score: 0 - Review of Systems General: Reports: No Symptoms. Denies: Fever, Weakness, Fatigue, Malaise, Chills, Night Sweats, Appetite (Appetite good and tolerating diet well) HEENT: Reports: No Symptoms. Denies: Dysphasia, Ear Pain, Eye Pain, Headaches, Post Nasal Drip, Sinus Congestion, Sore Throat, Rhinitis, Visual Changes Pulmonary: Reports: No Symptoms. Denies: Shortness of Breath, Pleuritic Chest Pain, Cough, Sputum, Hemoptysis, Wheezing Cardiovascular: Reports: No Symptoms. Denies: Chest Pain, Palpitations, Dyspnea on Exertion, Orthopnea, Edema, Lightheadedness Gastrointestinal: Reports: No Symptoms, Other (Normal bowel movement this morning per patient). Denies: Abdominal Pain, Constipation, Decreased Appetite , Diarrhea, Difficulty Swallowing, Flatus, Hematochezia, Melena, Nausea, Vomiting Genitourinary: Reports: No Symptoms, Other (Despite current UTI). Denies: Dysuria, Frequency, Burning, Pain, Urgency, Incontinence, Hematuria, Retention, Flank Pain Musculoskeletal: Reports: No Symptoms. Denies: Neck Pain, Shoulder Pain, Arm Pain, Back Pain, Leg Pain Skin: Reports: Pallor (Improved). Denies: Jaundice, Diaphoresis, Bruising, Pruritis, Rash Neurological: Reports: No Symptoms. Denies: Confusion, Dizziness, Headache, Numbness, Paresthesia, Tingling, Weakness Psychiatric: Reports: No Symptoms. Denies: Confusion, Depression, Agitation, Hallucinations, Suicidal Ideation - Patient Data Vitals - Most Recent: Last Vital Signs Temp 36.9 C 05/08/17 08:00 Pulse 66 05/08/17 08:00 Resp 15 05/08/17 08:00 BP 106/67 05/08/17 08:00 Pulse Ox 99 05/08/17 11:00 Vital Signs (72 hours) 05/06/17 05/06/17 05/06/17 10:11 11:56 12:54 Temperature 37.9 C Temperature [ Oral] Temperature [ 38.7 C H Temporal] Pulse, 110 H 93 Peripheral [ Pulse Oximetry] Respiratory 16 20 Rate Blood Pressure 105/62 100/59 L [Right Upper Arm] O2 Sat by Pulse 98 98 96 Oximetry 05/06/17 05/06/17 05/06/17 13:07 13:09 13:24 Temperature 37.6 C 37.2 C 37.1 C Temperature [ Oral] Temperature [ Temporal] Pulse, 88 94 84 Peripheral [ Pulse Oximetry] Respiratory 20 20 20 Rate Blood Pressure 97/61 101/89 99/55 L [Right Upper Arm] O2 Sat by Pulse 95 97 Oximetry 05/06/17 05/06/17 05/06/17 14:56 14:57 15:11 Temperature 37.0 C 37.0 C 37.0 C Temperature [ Oral] Temperature [ Temporal] Pulse, 81 76 76 Peripheral [ Pulse Oximetry] Respiratory 20 20 20 Rate Blood Pressure 99/57 L 95/58 L 93/55 L [Right Upper Arm] O2 Sat by Pulse 97 95 Oximetry 05/06/17 05/06/17 05/06/17 15:19 15:30 16:00 Temperature 36.9 C 37.0 C Temperature [ Oral] Temperature [ 37.0 C Temporal] Pulse, 75 73 Peripheral [ Pulse Oximetry] Respiratory 20 20 Rate Blood Pressure 92/53 L 95/59 L [Right Upper Arm] O2 Sat by Pulse 95 Oximetry 05/06/17 05/06/17 05/07/17 16:16 20:00 03:53 Temperature 37.0 C Temperature [ 37.1 C 36.5 C Oral] Temperature [ Temporal] Pulse, 73 84 91 Peripheral [ Pulse Oximetry] Respiratory 20 16 20 Rate Blood Pressure 100/63 114/67 125/71 [Right Upper Arm] O2 Sat by Pulse 100 100 99 Oximetry 05/07/17 05/07/17 05/07/17 06:11 08:00 11:12 Temperature Temperature [ 37.3 C 36.9 C 36.3 C Oral] Temperature [ Temporal] Pulse, 82 78 Peripheral [ Pulse Oximetry] Respiratory 16 16 Rate Blood Pressure 114/69 121/81 [Right Upper Arm] O2 Sat by Pulse 99 98 Oximetry 05/07/17 05/07/17 05/07/17 11:56 16:00 20:00 Temperature Temperature [ 38.1 C 37.1 C Oral] Temperature [ Temporal] Pulse, 103 H 79 Peripheral [ Pulse Oximetry] Respiratory 16 16 Rate Blood Pressure 119/69 107/67 [Right Upper Arm] O2 Sat by Pulse 100 100 99 Oximetry 05/08/17 05/08/17 08:00 11:00 Temperature Temperature [ 36.9 C Oral] Temperature [ Temporal] Pulse, 66 Peripheral [ Pulse Oximetry] Respiratory 15 Rate Blood Pressure 106/67 [Right Upper Arm] O2 Sat by Pulse 99 99 Oximetry Weight - Most Recent: 68.991 kg I&O - Last 24 hours: Intake & Output 05/07/17 05/08/17 05/08/17 22:59 06:59 14:59 Intake Total 300 420 Output Total 500 Balance -200 420 Imaging Impressions - Last 24 hrs: None Lab Results - Last 24 hrs: Laboratory Results - last 24 hr 05/08/17 05/08/17 05/08/17 Range/Units 09:25 09:25 09:25 WBC 4.5 (4.0-10.2) K/uL RBC 2.72 L (3.77-5.09) M/uL Hgb 9.2 L (11.7-15.5) g/dL Hct 28.8 L (34.0-46.0) % MCV 105.9 H (84.0-98.0) fL MCH 33.8 H (28.2-33.3) pg MCHC 31.9 (31.7-36.0) g/dL RDW 18.7 H (11.2-14.1) % Plt Count 156 (150-350) K/uL Neut % (Auto) 65.2 (45.0-80.0) % Lymph % (Auto) 25.2 (10.0-50.0) % [place] % (Auto) 7.6 (2.0-14.0) % Eos % (Auto) 1.8 (0.0-5.0) % Baso % (Auto) 0.2 (0.0-2.0) % Neut # (Auto) 2.93 (1.40-7.00) K/uL Lymph # (Auto) 1.13 (0.50-3.50) K/uL [place] # (Auto) 0.34 (0.00-1.00) K/uL Eos # (Auto) 0.08 (0.00-0.50) K/uL Baso # (Auto) 0.01 (0.00-0.20) K/uL Sodium 141 (136-145) mmol/L Potassium 3.2 L (3.5-5.1) mmol/L Chloride 107 (98-107) mmol/L Carbon Dioxide 25.3 (21.0-32.0) mmol/L BUN 11 (7-18) mg/dL Creatinine 0.72 (0.51-1.17) mg/dL Est Cr Clr Drug Dosing 98.74 mL/min Estimated GFR (MDRD) > 60 mL/min Glucose 131 H (74-106) mg/dL Hemoglobin A1c 3.9 L (4.3-5.7) % Calcium 8.1 L (8.5-10.1) mg/dL Laboratory Tests 05/06/17 05/06/17 05/06/17 Range/Units 10:20 10:20 10:20 WBC 5.9 (4.0-10.2) K/uL RBC 2.07 L (3.77-5.09) M/uL Hgb 7.5 L D (11.7-15.5) g/dL Hct 24.3 L* (34.0-46.0) % MCV 117.4 H D (84.0-98.0) fL MCH 36.2 H (28.2-33.3) pg MCHC 30.9 L (31.7-36.0) g/dL RDW 12.2 (11.2-14.1) % Plt Count 168 D (150-350) K/uL Neut % (Auto) 81.0 H (45.0-80.0) % Lymph % (Auto) 13.6 (10.0-50.0) % [place] % (Auto) 4.9 (2.0-14.0) % Eos % (Auto) 0.5 (0.0-5.0) % Baso % (Auto) 0.0 (0.0-2.0) % Neut # (Auto) 4.75 (1.40-7.00) K/uL Lymph # (Auto) 0.80 (0.50-3.50) K/uL [place] # (Auto) 0.29 (0.00-1.00) K/uL Eos # (Auto) 0.03 (0.00-0.50) K/uL Baso # (Auto) 0.00 (0.00-0.20) K/uL Sodium 140 D (136-145) mmol/L Potassium 3.7 (3.5-5.1) mmol/L Chloride 105 (98-107) mmol/L Carbon Dioxide 28.2 (21.0-32.0) mmol/L BUN 18 (7-18) mg/dL Creatinine 0.93 (0.51-1.17) mg/dL Est Cr Clr Drug Dosing TNP Estimated GFR (MDRD) > 60 mL/min Glucose 111 H (74-106) mg/dL Hemoglobin A1c (4.3-5.7) % Calcium 8.3 L (8.5-10.1) mg/dL Iron 12 L (50-175) ug/dL TIBC 159 L (250-450) ug/dL % Saturation [id number] Ferritin 392 H (8-388) ng/mL Total Bilirubin 0.9 (0.2-1.0) mg/dL AST 17 (15-37) U/L ALT 22 (12-78) U/L Alkaline Phosphatase 79 (46-116) IU/L Total Protein 6.4 (6.4-8.2) g/dL Albumin 3.2 L (3.4-5.0) g/dL Vitamin B12 (193-986) pg/mL Specimen Type Urine Color Urine Appearance Urine pH (5.0-9.0) Ur Specific [place] (1.005-1.030) Urine Protein (NEGATIVE) mg/dL Urine Glucose (UA) (NEGATIVE) mg/dL Urine Ketones (NEGATIVE) mg/dL Urine Occult Blood (NEGATIVE) Urine Nitrite (NEGATIVE) Urine Bilirubin (NEGATIVE) Urine Urobilinogen (0.2-1.0) E.U./dL Ur Leukocyte Esterase (NEGATIVE) Urine RBC /HPF Urine WBC /HPF Ur Epithelial Cells /LPF Urine Bacteria (NONE TO FEW) /HPF Blood Type Gel Antibody Screen Crossmatch 05/06/17 05/06/17 05/06/17 Range/Units 10:20 10:20 17:30 WBC (4.0-10.2) K/uL RBC (3.77-5.09) M/uL Hgb (11.7-15.5) g/dL Hct (34.0-46.0) % MCV (84.0-98.0) fL MCH (28.2-33.3) pg MCHC (31.7-36.0) g/dL RDW (11.2-14.1) % Plt Count (150-350) K/uL Neut % (Auto) (45.0-80.0) % Lymph % (Auto) (10.0-50.0) % [place] % (Auto) (2.0-14.0) % Eos % (Auto) (0.0-5.0) % Baso % (Auto) (0.0-2.0) % Neut # (Auto) (1.40-7.00) K/uL Lymph # (Auto) (0.50-3.50) K/uL [place] # (Auto) (0.00-1.00) K/uL Eos # (Auto) (0.00-0.50) K/uL Baso # (Auto) (0.00-0.20) K/uL Sodium (136-145) mmol/L Potassium (3.5-5.1) mmol/L Chloride (98-107) mmol/L Carbon Dioxide (21.0-32.0) mmol/L BUN (7-18) mg/dL Creatinine (0.51-1.17) mg/dL Est Cr Clr Drug Dosing Estimated GFR (MDRD) mL/min Glucose (74-106) mg/dL Hemoglobin A1c (4.3-5.7) % Calcium (8.5-10.1) mg/dL Iron (50-175) ug/dL TIBC (250-450) ug/dL % Saturation Ferritin (8-388) ng/mL Total Bilirubin (0.2-1.0) mg/dL AST (15-37) U/L ALT (12-78) U/L Alkaline Phosphatase (46-116) IU/L Total Protein (6.4-8.2) g/dL Albumin (3.4-5.0) g/dL Vitamin B12 629 (193-986) pg/mL Specimen Type Urinblad Urine Color Dark yellow Urine Appearance Slightly cloudy Urine pH 5.5 (5.0-9.0) Ur Specific [place] 1.025 (1.005-1.030) Urine Protein 100 H (NEGATIVE) mg/dL Urine Glucose (UA) Negative (NEGATIVE) mg/dL Urine Ketones Negative (NEGATIVE) mg/dL Urine Occult Blood Trace-lysed H (NEGATIVE) Urine Nitrite Negative (NEGATIVE) Urine Bilirubin Negative (NEGATIVE) Urine Urobilinogen 1.0 (0.2-1.0) E.U./dL Ur Leukocyte Esterase Trace H (NEGATIVE) Urine RBC 5-10 H /HPF Urine WBC 30-40 H /HPF Ur Epithelial Cells Few /LPF Urine Bacteria Many H (NONE TO FEW) /HPF Blood Type O POSITIVE Gel Antibody Screen Negative Crossmatch See Detail 05/06/17 05/07/17 05/07/17 Range/Units 18:45 07:10 07:10 WBC 5.9 (4.0-10.2) K/uL RBC 2.59 L (3.77-5.09) M/uL Hgb 8.8 L 8.8 L (11.7-15.5) g/dL Hct 27.4 L 27.2 L (34.0-46.0) % MCV 105.0 H D (84.0-98.0) fL MCH 34.0 H (28.2-33.3) pg MCHC 32.4 (31.7-36.0) g/dL RDW 20.1 H (11.2-14.1) % Plt Count 136 L (150-350) K/uL Neut % (Auto) 74.9 (45.0-80.0) % Lymph % (Auto) 16.4 (10.0-50.0) % [place] % (Auto) 7.3 (2.0-14.0) % Eos % (Auto) 1.2 (0.0-5.0) % Baso % (Auto) 0.2 (0.0-2.0) % Neut # (Auto) 4.44 (1.40-7.00) K/uL Lymph # (Auto) 0.97 (0.50-3.50) K/uL [place] # (Auto) 0.43 (0.00-1.00) K/uL Eos # (Auto) 0.07 (0.00-0.50) K/uL Baso # (Auto) 0.01 (0.00-0.20) K/uL Sodium 140 (136-145) mmol/L Potassium 3.4 L (3.5-5.1) mmol/L Chloride 107 (98-107) mmol/L Carbon Dioxide 27.0 (21.0-32.0) mmol/L BUN 15 (7-18) mg/dL Creatinine 0.68 (0.51-1.17) mg/dL Est Cr Clr Drug Dosing 103.98 Estimated GFR (MDRD) > 60 mL/min Glucose 88 (74-106) mg/dL Hemoglobin A1c (4.3-5.7) % Calcium 7.6 L (8.5-10.1) mg/dL Iron (50-175) ug/dL TIBC (250-450) ug/dL % Saturation Ferritin (8-388) ng/mL Total Bilirubin 1.0 (0.2-1.0) mg/dL AST 27 (15-37) U/L ALT 27 (12-78) U/L Alkaline Phosphatase 69 (46-116) IU/L Total Protein 5.4 L (6.4-8.2) g/dL Albumin 2.6 L (3.4-5.0) g/dL Vitamin B12 (193-986) pg/mL Specimen Type Urine Color Urine Appearance Urine pH (5.0-9.0) Ur Specific [place] (1.005-1.030) Urine Protein (NEGATIVE) mg/dL Urine Glucose (UA) (NEGATIVE) mg/dL Urine Ketones (NEGATIVE) mg/dL Urine Occult Blood (NEGATIVE) Urine Nitrite (NEGATIVE) Urine Bilirubin (NEGATIVE) Urine Urobilinogen (0.2-1.0) E.U./dL Ur Leukocyte Esterase (NEGATIVE) Urine RBC /HPF Urine WBC /HPF Ur Epithelial Cells /LPF Urine Bacteria (NONE TO FEW) /HPF Blood Type Gel Antibody Screen Crossmatch 05/08/17 05/08/17 05/08/17 Range/Units 09:25 09:25 09:25 WBC 4.5 (4.0-10.2) K/uL RBC 2.72 L (3.77-5.09) M/uL Hgb 9.2 L (11.7-15.5) g/dL Hct 28.8 L (34.0-46.0) % MCV 105.9 H (84.0-98.0) fL MCH 33.8 H (28.2-33.3) pg MCHC 31.9 (31.7-36.0) g/dL RDW 18.7 H (11.2-14.1) % Plt Count 156 (150-350) K/uL Neut % (Auto) 65.2 (45.0-80.0) % Lymph % (Auto) 25.2 (10.0-50.0) % [place] % (Auto) 7.6 (2.0-14.0) % Eos % (Auto) 1.8 (0.0-5.0) % Baso % (Auto) 0.2 (0.0-2.0) % Neut # (Auto) 2.93 (1.40-7.00) K/uL Lymph # (Auto) 1.13 (0.50-3.50) K/uL [place] # (Auto) 0.34 (0.00-1.00) K/uL Eos # (Auto) 0.08 (0.00-0.50) K/uL Baso # (Auto) 0.01 (0.00-0.20) K/uL Sodium 141 (136-145) mmol/L Potassium 3.2 L (3.5-5.1) mmol/L Chloride 107 (98-107) mmol/L Carbon Dioxide 25.3 (21.0-32.0) mmol/L BUN 11 (7-18) mg/dL Creatinine 0.72 (0.51-1.17) mg/dL Est Cr Clr Drug Dosing 98.74 Estimated GFR (MDRD) > 60 mL/min Glucose 131 H (74-106) mg/dL Hemoglobin A1c 3.9 L (4.3-5.7) % Calcium 8.1 L (8.5-10.1) mg/dL Iron (50-175) ug/dL TIBC (250-450) ug/dL % Saturation Ferritin (8-388) ng/mL Total Bilirubin (0.2-1.0) mg/dL AST (15-37) U/L ALT (12-78) U/L Alkaline Phosphatase (46-116) IU/L Total Protein (6.4-8.2) g/dL Albumin (3.4-5.0) g/dL Vitamin B12 (193-986) pg/mL Specimen Type Urine Color Urine Appearance Urine pH (5.0-9.0) Ur Specific [place] (1.005-1.030) Urine Protein (NEGATIVE) mg/dL Urine Glucose (UA) (NEGATIVE) mg/dL Urine Ketones (NEGATIVE) mg/dL Urine Occult Blood (NEGATIVE) Urine Nitrite (NEGATIVE) Urine Bilirubin (NEGATIVE) Urine Urobilinogen (0.2-1.0) E.U./dL Ur Leukocyte Esterase (NEGATIVE) Urine RBC /HPF Urine WBC /HPF Ur Epithelial Cells /LPF Urine Bacteria (NONE TO FEW) /HPF Blood Type Gel Antibody Screen Crossmatch ALISON Results - Last 24 hrs: Microbiology 05/06/17 17:30 Urine Culture - Final Urine, Voided Escherichia Coli Microbiology 05/06/17 11:25 Blood - Venous - Lab Draw Aerobic Blood Culture - Preliminary NO GROWTH AFTER 2 DAYS 05/06/17 11:25 Blood - Venous - Lab Draw Anaerobic Blood Culture - Preliminary NO GROWTH AFTER 2 DAYS 05/06/17 11:20 Blood - Venous Aerobic Blood Culture - Preliminary NO GROWTH AFTER 2 DAYS 05/06/17 11:20 Blood - Venous Anaerobic Blood Culture - Preliminary NO GROWTH AFTER 2 DAYS 05/06/17 17:30 Urine, Voided Urine Culture - Final Escherichia Coli 05/06/17 10:15 Nasal, Left Influenza Type A Antigen Screen - Final NEGATIVE INFLUENZA A VIRUS AG 05/06/17 10:15 Nasal, Left Influenza Type B Antigen Screen - Final NEGATIVE INFLUENZA B VIRUS AG Med Orders - Current: Current Medications Acetaminophen (Tylenol) 650 mg PO Q4H PRN PRN Reason: analgesia/fever Last Admin: 05/07/17 17:50 Dose: 650 mg Bisacodyl (Dulcolax) 10 mg RECTAL DAILY PRN PRN Reason: Constipation Cyclobenzaprine HCl (Flexeril) 10 mg PO BEDTIME [facility] [place] Last Admin: 05/07/17 21:19 Dose: 10 mg Diazepam (Valium.) 10 mg PO BID@0800,2000 [facility] [place] Last Admin: 05/08/17 07:50 Dose: 10 mg Fluoxetine HCl (Prozac) 40 mg PO QAM [facility] [place] Last Admin: 05/08/17 07:50 Dose: 40 mg Folic Acid (Folic Acid) 1 mg PO QAM [facility] [place] Last Admin: 05/08/17 07:50 Dose: 1 mg Sodium Chloride (Normal Saline) 1,000 mls @ 75 mls/hr IV ASDIRECTED [facility] [place] Last Admin: 05/07/17 08:06 Dose: 125 mls/hr Ceftriaxone Sodium 1 gm/ (Sodium Chloride) 100 mls @ 200 mls/hr IV Q24H [facility] [place] Last Admin: 05/08/17 08:33 Dose: 200 mls/hr Ketorolac Tromethamine (Toradol) 30 mg IVPUSH Q6H PRN PRN Reason: Pain Stop: 05/11/17 12:12 Last Admin: 05/06/17 19:47 Dose: 30 mg Magnesium Hydroxide (Milk Of Magnesia) 30 ml PO BID PRN PRN Reason: Constipation Nitrofurantoin Macrocrystals (Macrobid) 100 mg PO BID [facility] [place] Last Admin: 05/08/17 07:50 Dose: 100 mg Pantoprazole Sodium (Protonix Iv) 40 mg IVPUSH DAILY [facility] [place] Last Admin: 05/08/17 07:51 Dose: 40 mg Sodium Chloride (Saline Flush) 10 ml FLUSH ASDIRECTED PRN PRN Reason: Keep Vein Open Last Admin: 05/08/17 08:34 Dose: 10 ml Tramadol HCl (Ultram) 50 mg PO Q6H PRN PRN Reason: Pain Last Admin: 05/07/17 17:49 Dose: 50 mg Zolpidem Tartrate (Ambien) 10 mg PO BEDTIME [facility] Last Admin: 05/07/17 21:19 Dose: 10 mg Zolpidem Tartrate (Ambien) 2.5 mg PO BEDTIME PRN PRN Reason: Insomnia Last Admin: 05/08/17 04:44 Dose: 2.5 mg Discontinued Medications Diazepam (Valium.) 10 mg PO BID [facility] Last Admin: 05/06/17 18:55 Dose: Not Given Sodium Chloride (Normal Saline) 1,000 mls @ 999 mls/hr IV .BOLUS ONE Stop: 05/06/17 11:16 Last Admin: 05/06/17 10:34 Dose: 999 mls/hr Ketorolac Tromethamine (Toradol) 30 mg IVPUSH ONETIME ONE Stop: 05/06/17 11:31 Last Admin: 05/06/17 12:11 Dose: 30 mg - Exam Quality Assessment: Reports: DVT Prophylaxis. Denies: Supplemental Oxygen, Urine Catheter, Skin Breakdown, Restraints General: Reports: Alert, Oriented, Cooperative, No Acute Distress HEENT: Reports: Pupils Equal, Pupils Reactive, EOMI, Mucous Membr. Moist/[place] Neck: Reports: Supple, Trachea Midline, No JVD, No Thyromegaly. Denies: Lymphadenopathy Lungs: Reports: Clear to Auscultation, Normal Respiratory Effort. Denies: Rub Cardiovascular: Reports: Regular Rate, Regular Rhythm, No Murmurs. Denies: Gallops, Rubs GI/Abdominal Exam: Normal Bowel Sounds, Soft, Non-Tender, No Organomegaly, No Distention, No Abnormal Bruit, No Mass, Pelvis Stable. No: Guarding (Female) Exam: Deferred Rectal (Female) Exam: Deferred Back Exam: Reports: Normal Inspection, Full Range of Motion. Denies: CVA Tenderness (L), CVA Tenderness (R), Muscle Spasm Extremities: Normal Inspection, Normal Range of Motion, Non-Tender, No Pedal Edema, Normal Capillary Refill Skin: Reports: Warm, Dry, Intact, Other (Mild pallor improved) Neurological: Reports: No New Focal Deficit, Other (No clinical orthostasis) Psy/Mental Status: Reports: Alert, Normal Affect, Normal Mood. Denies: Agitated , Suicidal Ideation, Homicidal Ideation, Hallucinations, Withdrawal Symptoms *Q Meaningful Use (DIS) - VTE *Q VTE Criteria *Q: - Stroke *Q Stroke Criteria *Q: - AMI *Q AMI Criteria *Q:
[2017-05-08] MEDS ORDERED: Potassium Chloride 20 MEQ Tab.ER PO ONE (11:59)
[2017-05-08] MEDS ORDERED: Cyanocobalamin (Vitamin B12) 1,000 MCG/ML SDV IM ONE (12:37)
== END 2017-05-08 13:35 | disposition home or self-care (01) | DRG 663 ==
LOC: LL.ED 10:09 → LL.MS 11:30
PROVIDERS: ADMIT Emergency Medicine; ATTEND Emergency Medicine
PROC: 30233N1 Transfusion of Nonautologous Red Blood Cells into Peripheral Vein, Percutaneous Approach (ICD-10-PCS; principal; 2017-05-06)
DX: D64.9 Anemia, unspecified (principal); E86.0 Dehydration; E87.6 Hypokalemia; E88.09 Other disorders of plasma-protein metabolism, not elsewhere classified; R50.9 Fever, unspecified; J06.9 Acute upper respiratory infection, unspecified; N39.0 Urinary tract infection, site not specified; R51 Headache; M06.9 Rheumatoid arthritis, unspecified; E53.8 Deficiency of other specified B group vitamins; J30.9 Allergic rhinitis, unspecified; E28.2 Polycystic ovarian syndrome; B97.89 Other viral agents as the cause of diseases classified elsewhere; F41.8 Other specified anxiety disorders; Z88.8 Allergy status to other drugs, medicaments and biological substances; Z79.899 Other long term (current) drug therapy
CPT/HCPCS: 36415; 36430; 80048; 80053; 81001; 82607; 82728; 83036; 83540; 83550; 85014; 85018; 85025; 85045; 86850; 86900; 86901; 86920; 86922; 87040; 87086; 87088; 87186; 87804; 96360; 99284; A9270-GY; C9113; J0696; J1885; J3420; J7030; J7050; P9016